=== PATIENT | male | born 1965 | race Caucasian/White ===

== ENCOUNTER → 2023-11-16 | Outpatient (CLI) | payer OTHER ==
--- NOTE | 2023-11-16 15:10 | US ---
EXAMINATION TYPE: US thyroid st tissue head/neck DATE OF EXAM: 11/16/2023 COMPARISON: NONE CLINICAL INDICATION: Male, 58 years old with history of E05.90 THYROTOXICOSIS; hyperthyroidism GLAND SIZE: Right Lobe: 5.4 x 2.3 x 2.3 cm Overall Parenchyma: heterogenous Left Lobe: 5.5 x 2.4 x 2.0 cm Overall Parenchyma: heterogenous Isthmus Thickness: 0.5 cm Severely heterogeneous glandular parenchyma with diffuse hyperemia. The degree of heterogeneity makes it difficult to identify discrete nodules. IMPRESSION: Borderline thyromegaly with severe, diffuse glandular heterogeneity and associated hyperemia. Correla te for diffuse thyroiditis.
== END | disposition home or self-care (01) ==
LOC: RADUSWWP 12:12
PROVIDERS: ATTEND Internal Medicine
DX: E05.90 Thyrotoxicosis, unspecified without thyrotoxic crisis or storm (principal)
CPT/HCPCS: 76536

== ENCOUNTER → 2025-02-14 | Outpatient (CLI) | payer OTHER ==
[2025-02-14 18:15] LABS: Basophils # (A) 0.02 X 10*3/uL (0.00-0.10); Basophils % (A) 0.2 %; Eosinophils # (A) 0.06 X 10*3/uL (0.04-0.35); Eosinophils % (A) 0.7 %; HGB 15.1 g/dL (13.0-17.0); Lymphocytes # (A) 2.65 X 10*3/uL (0.90-5.00); Lymphocytes % (A) 32.1 %; MCH 32.8 pg (27.0-32.0); MCHC 34.3 g/dL (32.0-37.0); MCV 95.7 FL (80.0-97.0); Mean Platelet Volume 11.2 FL (9.5-12.2); Monocytes # (A) 0.43 X 10*3/uL (0.20-1.00); Monocytes % (A) 5.2 %; NRBC Per 100 WBC 0 X 10*3/uL (0.00-0.01); Neutrophils # (A) 5.08 X 10*3/uL (1.80-7.70); Neutrophils % (A) 61.6 %; Platelet Count 206 X 10*3/uL (140-440); RDW 12.8 % (11.5-14.5); WBC 8.26 X 10*3/uL (4.50-10.00)
[2025-02-14 18:33] LABS: INR 0.94 sec (0.93-1.11); Prothrombin Time 10.8 sec (9.9-11.9)
[2025-02-14 18:51] LABS: BUN/Creat Ratio 15.25 Ratio (12.00-20.00); Blood Urea Nitrogen 12.2 mg/dL (9.0-27.0); Chloride 101 mmol/L (96-109); Glucose 73 mg/dL (70-110); Potassium 4.1 mmol/L (3.5-5.5); Sodium 138 mmol/L (135-145)
[2025-02-14 18:52] LABS: Calcium 9.5 mg/dL (8.7-10.3); Carbon Dioxide 21.4 mmol/L (21.6-31.8)
== END | disposition home or self-care (01) ==
LOC: LABPAT 13:08
PROVIDERS: ATTEND Orthopaedic Surgery
DX: Z01.818 Encounter for other preprocedural examination (principal); M17.12 Unilateral primary osteoarthritis, left knee; R94.31 Abnormal electrocardiogram [ECG] [EKG]; Z22.322 Carrier or suspected carrier of Methicillin resistant Staphylococcus aureus
CPT/HCPCS: 36415; 80048; 85025; 85610; 86850; 86900; 86901; 87070; 93005

== ENCOUNTER 2025-02-20 08:14 | Day surgery (SDC) | payer OTHER ==
--- NOTE | 2025-02-19 13:58 | HP ---
HISTORY AND PHYSICAL DATE OF SURGERY: 02/20/2025. HISTORY OF PRESENT ILLNESS: Sarath Fritz is a 60-year-old gentleman seen with symptomatic left knee osteoarthritis. After having treatment options discussed, he elected to proceed with left total knee arthroplasty. Consent was obtained. PAST MEDICAL HISTORY: Noncontributory. PAST SURGICAL HISTORY: Bilateral knee arthroscopy. DAILY MEDICATIONS: Allopurinol. ALLERGIES: None reported. SOCIAL HISTORY: Denies tobacco use. PHYSICAL EVALUATION OF THE LEFT KNEE: Range of motion is 0 to 130 degrees. Tenderness along the medial and lateral joint lines. Crepitance along the medial and lateral patellofemoral compartments with range of motion. Some pain with patellofemoral compression. Ligaments stable. Hip rotation without pain. Distal neurovascular exam is intact. IMAGING STUDIES: Radiographs of the left knee revealed severe osteoarthritic changes. IMPRESSION: Left knee osteoarthritis. PLAN: Left total knee arthroplasty. MMODL / IJN: [id number] /
[~2025-02-20 08:14] MED LIST: LIDOCAINE 1% (10MG/ML) FOR IV START INTRADERMA PRN; TRANEXAMIC 1,000 MG/100ML-NACL 1,000 MG in SALINE 1 100ML.BAG IVPB PRN; droPERidol 2.5 MG/ML VIAL IVP ONE
[2025-02-20] MEDS: IV FLUID CONTINUATION 1,000 ML IV ONE ×2 (08:30→12:37)
[2025-02-20] MEDS: ACETAMINOPHEN TAB 500 MG TAB PO PRN (08:55)
[2025-02-20] MEDS: MELOXICAM 7.5 MG TAB PO PRN (08:55)
[2025-02-20] MEDS: ONDANSETRON 4 MG/2 ML VIAL IVP ONE (08:56)
[2025-02-20] MEDS: DEXAMETHASONE SOD PHOSPHATE 4 MG/ML 1 ML VIAL IV ONE (08:56)
[2025-02-20] MEDS: LACTATED RINGERS 1,000 ML IV SCH (08:56)
[2025-02-20] MEDS: fentaNYL (PF) 50 MCG/ML 2 ML AMP IVP PRN ×2 (09:03→12:57)
[2025-02-20] MEDS: MIDAZOLAM 2 MG/2 ML VIAL IV ONE (09:03)
--- NOTE | 2025-02-20 09:30 | P.ANPRN ---
Procedure Note - Anesthesia - Nerve Block Performed Left Adductor Canal Infusion Time Out Performed: Yes (902) Date of Procedure: 02/20/25 Procedure Start Time: : Procedure Stop Time: : Location of Patient: PreOp Indication: Acute Post-Operative Pain, Requested by Surgeon Specifically requested for management of pain by DrLarry: Baltazar Hutson Sedation Type: Sedate with meaningful contact maintained Preparation: Sterile Prep, Sterile Dressing Position: Supine Catheter Depth at Skin (cm): 6 Catheter: Indwelling Needle Types: Pajunk Needle Gauge: 18 Ultrasound used to visualize needle placement: Yes Ultrasound used to observe medication spread: Yes Injectate: 0.5% Ropivacaine (see comment for volume) (15cc+10cc nacl pf+decadron 4mg) Blood Aspirated: No Pain Paresthesia on Injection Noted: No Resistance on Injection: Normal Image Stored and Saved: Yes Events: Uneventful and Well Tolerated
--- NOTE | 2025-02-20 09:33 | P.ANPRN ---
Procedure Note - Anesthesia - Nerve Block Performed Left iPack Single Time Out Performed: Yes (901) Date of Procedure: 02/20/25 Procedure Start Time: : Procedure Stop Time: :12 Location of Patient: PreOp Indication: Acute Post-Operative Pain, Requested by Surgeon Specifically requested for management of pain by DrLarry: Baltazar Hutson Sedation Type: Sedate with meaningful contact maintained Preparation: Sterile Prep Position: Supine Catheter: None Needle Types: Pajunk Needle Gauge: 21 Ultrasound used to visualize needle placement: Yes Ultrasound used to observe medication spread: Yes Injectate: 0.5% Ropivacaine (see comment for volume) (30cc) Blood Aspirated: No Pain Paresthesia on Injection Noted: No Resistance on Injection: Normal Image Stored and Saved: Yes Events: Uneventful and Well Tolerated
[2025-02-20] MEDS ORDERED: GLYCOPYRROLATE 0.2 MG/ML 2 ML VIAL ONE (09:50)
[2025-02-20] MEDS ORDERED: TRANEXAMIC 1,000 MG/100ML-NACL PREMIX BAG ONE (09:50)
[2025-02-20] MEDS ORDERED: NEOSTIGMINE 1 MG/ML 10 ML VIAL ONE (09:50)
[2025-02-20] MEDS ORDERED: fentaNYL (PF) 50 MCG/ML 2 ML AMP ONE (09:50)
[2025-02-20] MEDS ORDERED: SODIUM CHLORIDE 0.9% (PF) 10 ML VIAL ONE (09:50)
[2025-02-20] MEDS ORDERED: ROCURONIUM 10 MG/ML (5 ML VIAL) IV ONE (09:50)
[2025-02-20] MEDS ORDERED: HYDROmorphone (PF) 1 MG/ML ONE (09:50)
[2025-02-20] MEDS ORDERED: DEXAMETHASONE SOD PHOSPHATE 4 MG/ML 1 ML VIAL ONE (09:50)
[2025-02-20] MEDS ORDERED: KETAMINE HCL IN 0.9 % NACL 50 MG/5 ML SYRINGE ONE (09:50)
[2025-02-20] MEDS ORDERED: ROPIVACAINE 5 MG/ML 30 ML VIAL ONE (09:50)
[2025-02-20] MEDS ORDERED: SUCCINYLCHOLINE CHLORIDE 200 MG/10 ML VIAL IV ONE (09:50)
[2025-02-20] MEDS ORDERED: LIDOCAINE 1% INJ 10MG/ML (20 ML MDV) ONE (09:50)
[2025-02-20] MEDS ORDERED: PROPOFOL 10 MG/ML 20 ML VIAL IV ONE (09:50)
[2025-02-20] MEDS ORDERED: MIDAZOLAM 2 MG/2 ML VIAL ONE (09:50)
[2025-02-20] MEDS: ceFAZolin 1,000 MG in SODIUM CHLORIDE 0.9% 1,000 ML IRRIGATION ONE (10:18)
[2025-02-20] MEDS ORDERED: HYDROmorphone 0.5 MG/0.5 ML SYRINGE IVP PRN ×2 (11:51)
[2025-02-20] MEDS ORDERED: NALOXONE 0.4 MG/ML 1 ML VIAL IV PRN (11:51)
[2025-02-20] MEDS ORDERED: HYDROmorphone 1 MG/ML 1 ML SYRINGE IVP PRN (11:51)
[2025-02-20] MEDS ORDERED: HYDROcodone/APAP 7.5-325MG 1 EACH TAB PO PRN (11:51)
[2025-02-20] MEDS ORDERED: ONDANSETRON 4 MG/2 ML VIAL IVP PRN (11:51)
--- NOTE | 2025-02-20 11:51 | P.OP ---
Date of Procedure: 02/20/25 Preoperative Diagnosis: Left knee osteoarthritis Postoperative Diagnosis: Left knee osteoarthritis Procedure(s) Performed: Left total knee arthroplasty Implants: 1. DePuy attune size 6 left cruciate retaining cemented femur 2. DePuy attune size 6 fixed-bearing cemented tibial baseplate 3. DePuy attune size 6 fixed-bearing cruciate retaining 8 mm polyethylene tibial insert 4. DePuy attune 41 mm all polyethylene cemented patella Anesthesia: GETA, regional (Adductor canal Block, iPAQ block) Surgeon: Baltazar Hutson Cost Control Specialist #1: Lupillo Wilson Estimated Blood Loss (ml): 45 Pathology: none sent Condition: stable Disposition: PACU Indications for Procedure: 60-year-old patient seen with symptomatic left knee osteoarthritis. After having treatment options discussed, he elected to proceed with total knee arthroplasty. Operative Findings: See description of procedure Description of Procedure: Patient was taken to the operative suite after having an adductor canal catheter placed by the department of anesthesia. Patient underwent a general anesthetic by the department of anesthesia. Patient was given preoperative IV intake antibiotics and TXA. A well-padded tourniquet was placed about the left lower extremity. The lower extremity was then prepped and draped in the normal sterile orthopedic fashion. The extremity was elevated, a tourniquet was insuff lated to 300. A standard anterior incision was made sharply through skin. Dissection was taken down through the subcutaneous soft tissues down to the extensor mechanism. A medial arthrotomy was performed, patella was everted and knee was flexed. There was advanced osteoarthritis noted. I introduced my distal intramedullary femoral drill. I then introduced the distal femoral cutting jig. Peterson FORDE secured the cutting jig with 2 pins. I held retractors in position while Peterson FORDE performed the distal femoral resection through the guide area we now removed her distal femoral cutting guide. We now placed our 4-in-1 femoral cutting block and positioned and it was secured with 2 pins by Peterson FORDE while I held the block in position. The distal femoral finishing was now completed. A proximal tibial cutting guide was positioned. I held the guide in the appropriate position with both hands well Peterson FORDE inserted stabilizing pins into the guide. Proximal tibial cut was made. We now placed a trial femoral component into position, along with an appropriate size tibial tray and insert. We now took the knee through range of motion and had full extension good flexion and good overall soft tissue balance noted. The patella was everted and stabilized with 2 towel clips held by Peterson FORDE while I performed a flush with patellar quad tendon utilizing a fresh sawblade. We templated the patella, appropriate drill holes were made. An appropriate trial patella was positioned, knee was taken through full range of motion with the patella tracking very nicely. The trial patella was removed. Drill holes were made through the femoral component. All trial components were removed after marking off the appropriate rotation of the tibia. Retractors were now positioned along the proximal tibia. An appropriate keel punch was made with the appropriate size tibial guide by myself on Peterson FORDE assisted by holding retractors. At this point appropriate size implants were chosen and opened. The joint was irrigated copiously with pulse lavage mechanical irrigation. The posterior capsule was infiltrated with local analgesic. The wound was irrigated with pulse lavage mechanical irrigation. We mixed antibiotic methylmethacrylate. We placed the knee into flexion. We placed multiple retractors assisted by Peterson FORDE to expose the proximal tibia. Once the methyl methacrylate was ready, the tibial component was cemented into place removing any excess methylmethacrylate form by both myself and Peterson FORDE. The femoral component was cemented into place removing the removing any excess methylmethacrylate performed by both myself and Peterson FORDE. We then inserted the appropriate size polyethylene tibial insert. We made sure that it was locked into position. We took the knee into full extension, and then back in a flexion making sure we had removed any excess methylmethacrylate. The patellar component was then cemented down and secured with clamp. Excess methylmethacrylate removed. We kept the knee in full extension, patellar clamp in position until methylmethacrylate had hardened. Once it had hardened the patellar clamp was removed. The knee was taken through full range of motion. The patella tracked nicely. There was good soft tissue balancing. The tourniquet was now released. Additional hemostasis was achieved via electrocautery. A second gram of TXA was given. The wound again was irrigated with pulse lavage mechanical irrigation. The extensor mechanism was repaired with Ethibond suture. We checked the repair with range of motion and it was stable. The subcutaneous soft tissues were repaired with Vicryl in layers. The skin was approximated with pernio/Dermabond. Sterile dressings were applied followed by loose web roll and Anthony bandage. The patient was transferred to a bed, and taken to recovery in stable and satisfactory condition. Peterson FORDE assisted with this complex procedure.
[2025-02-20 12:17] VITALS: TEMP 97.3
[2025-02-20] MEDS: HYDROmorphone 0.5 MG/0.5 ML SYRINGE IVP PRN (12:29)
[2025-02-20] MEDS: LACTATED RINGERS 1,000 ML IV ONE (12:36)
[2025-02-20] MEDS: ROPIVACAINE 1,100 MG, SODIUM CHLORIDE 0.9% 500 ML 330 ML, EMPTY PAIN BALL 1 EACH MISCELLANE PRN (12:39)
--- NOTE | 2025-02-20 13:07 | XR ---
EXAMINATION TYPE: XR knee limited LT DATE OF EXAM: 02/20/2025 12:37 PM COMPARISON: None CLINICAL INDICATION: Male, 60 years old with history of Evaluation for Postop abnormality and alignme nt; PHH, pain TECHNIQUE: XR knee limited LT 2 views submitted. FINDINGS: Status post total knee arthroplasty changes with hardware in appropriate alignment and in tact. No evidence of fracture. Subcutaneous lucencies and lucencies within the joint consistent with surgical changes. IMPRESSION: Status post total knee arthroplasty changes with hardware intact and appropriate alignment. No fractu res identified. [facility], , 02/20/2025 1:04 PM
[2025-02-20 13:56] VITALS: RESP 16
[2025-02-20] MEDS: hydrALAZINE HCL 20 MG/ML 1 ML VIAL IVP STA (14:33)
[2025-02-20] MEDS: HYDROcodone/APAP 5-325MG 1 EACH TAB PO PRN (14:34)
[2025-02-20 16:34] VITALS: BP 135/84; PULSE 96
--- NOTE | 2025-02-23 17:20 | P.PN ---
Progress Note - Text 02/21/25 642am 60-year-old male status post total knee replacement. Patient seen and evaluated for postop pain control, patient has an On-Q pump postop pain control with solution on 8 cc an hour with a VAS of 3. Dressing clean dry and intact. Plan to continue infusion
== END 2025-02-20 17:07 | disposition home health service (06) ==
LOC: OR 08:14
PROVIDERS: ATTEND Orthopaedic Surgery
DX: M17.12 Unilateral primary osteoarthritis, left knee (principal); G89.18 Other acute postprocedural pain; G47.33 Obstructive sleep apnea (adult) (pediatric); Z79.899 Other long term (current) drug therapy
CPT/HCPCS: 27447; 97161; 64448; 64474; 73560; C1776; C1713 ×2; C1751; J2250; J0330; J0360; J1100; J2710; J0690 ×2; J2405; J2003; J3010; J1171 ×2; J2795; J2704; J1596